=== PATIENT | female | born 1940 | race Caucasian/White ===

== ENCOUNTER 2018-07-30 16:21 | Inpatient (IN) ==
--- NOTE | 2018-07-30 20:02 | ED ---
HPI General Chief complaint: Nausea/Vomiting/Diarrhea Stated complaint: GI Time Seen by Provider: 07/30/18 19:59 Source: patient History of Present Illness HPI narrative: The patient is a 78 year old female who presents to the [facility] emergency department with a history of CHF, hypertension, aortic stenosis , and rheumatoid arthritis c/o 3 days of nausea and vomiting. She first presented to a clinic in [place] 4 days previous due to sore throat and cough for several day duration, She was told it was a cold and recommended to take tylenol cold and flu. She began driving from [place] later that day when she had new onset nausea and vomiting. She was seen at a local clinic and given sublingual zofran with failure to tolerate PO liquids and referred to the ER. Unable to tolerate any food, liquids, or medications for the last 2 days. She does not experience motion sickness or car sickness. She denies fever, chills, night sweats, hematemesis, diarrhea or constipation. Endorses rapid heart beats. Related Data Home Medications Medication Instructions Recorded Confirmed amlodipine 5 mg PO DAILY 07/30/18 07/30/18 cetirizine [Zyrtec] 10 mg PO DAILY 07/30/18 07/30/18 folic acid 1 mg PO DAILY 07/30/18 07/30/18 furosemide [Lasix] 10 mg PO ONCE 07/30/18 07/30/18 hydralazine 50 mg PO TID 07/30/18 07/30/18 ipratropium bromide 2 spray INTRANASAL TID 07/30/18 07/30/18 methotrexate sodium 2.5 mg PO DAILY 07/30/18 07/30/18 prednisone 5 mg PO DAILY 07/30/18 07/30/18 sulfasalazine 0.5 g PO DAILY 07/30/18 07/30/18 Allergies Allergy/AdvReac Type Severity Reaction Status Date / Time No Known Allergies Allergy Verified 07/30/18 17:27 Review of Systems Constitutional Denies chills, Denies excessive sweating, Denies fever(s), Denies night sweats and Reports poor appetite Eyes Reports system reviewed and no additional complaints, except as docu ENT Reports system reviewed and no additional complaints, except as docu, Reports dry mouth, Denies nasal discharge, Denies post nasal drip and Reports sore throat Cardiovascular Denies chest pain, Denies chest pain at rest, Reports rapid heart rate, Reports pedal edema, Reports edema, Reports irregular heart rhythm and Reports leg edema Respiratory Reports cough, Reports excessive phlegm production and Denies pain with cough Gastrointestinal Denies hematochezia, Denies change in bowel habits, Denies coffee ground emesis , Denies constipation, Denies diarrhea, Reports nausea and Reports vomiting Genitourinary Reports system reviewed and no additional complaints, except as docu Musculoskeletal Reports system reviewed and no additional complaints, except as docu, Denies myalgias and Denies muscle cramps Neurologic Reports system reviewed and no additional complaints, except as docu Endocrine Reports system reviewed and no additional complaints, except as docu [facility] Medical History Medical History Irregular heart beat (Acute) Aortic stenosis (Acute) Congestive heart failure (Acute) Hypertension (Acute) Rheumatoid arteritis (Acute) Surgical History Surgical History H/O right knee surgery (Acute) Hx laparoscopic cholecystectomy (Acute) Social History Social History Second Hand Smoke Exposure: No Smoking Status: Never smoker How Often Do You Have a Drink Containing Alcohol: Monthly or less Recent Travel in [facility] within the Last 8 Weeks: No Recent Out of Country Travel within the Last 8 Weeks: No Exam Const General: cooperative and well developed Nutritional Appearance: well nourished Orientation: alert, awake and oriented x3 HENMT Head: normocephalic and atraumatic Nose: no nasal discharge and no epistaxis Face and sinus: sinuses nontender Mouth: moist mucous membranes Teeth and gingiva: poor dentition Throat: posterior oropharynx normal Eyes Sclera: normal sclerae Pupils: PERRL EOM: EOM intact bilaterally Neck Neck: trachea midline, JVD and no JVD Thyroid: thyroid normal Carotids: bounding pulses Lymphatic: no lymphadenopathy noted Resp Effort & Inspection: no use of accessory muscles Auscultation: clear to auscultation bilaterally Cardio Rate: tachycardic Rhythm: abnormal rhythm irregularly irregular Heart Sounds: no gallops, murmur (Harper loudest at the right upper sternal border) systolic and no rubs Pulses: posterior tibial pulses present GI Inspection: non-distended Palpation: soft, no hepatosplenomegaly and nontender Auscultation: normal bowel sounds Back/Spine/Pelvis Back: no CVA tenderness Skin General: dry skin (warm) Neuro General: alert, awake and oriented x3 Cranial Nerves: other (Grossly nonfocal) Speech: speech normal Motor: no movement abnormalities noted Extrem General: normal to inspection, no clubbing, no cyanosis and no edema Psych Mood: congruent mood Affect: normal affect Judgment: judgment good Course Consultations Consultation #1: The patient's case including history, pertinent physical examination findings, and laboratory studies were discussed with Dr. Maldonado. It was agreed that the patient would be admitted to the hospitalist service. Initial Documented Vital Signs Temperature 98.8 F 07/30/18 17:16 Pulse Rate 85 07/30/18 17:16 Respiratory Rate 18 07/30/18 17:16 Blood Pressure 185/88 H 07/30/18 17:16 Pulse Oximetry 94 L 07/30/18 17:16 Last Documented Vital Signs Temperature 98.8 F 07/30/18 17:16 Pulse Rate 78 07/30/18 20:05 Respiratory Rate 18 07/30/18 20:05 Blood Pressure 191/84 H 07/30/18 20:05 Pulse Oximetry 98 07/30/18 20:05 Medical Decision Making MDM Narrative Medical decision making narrative: During the course of the patient's emergency department visit, the patient's history, examination, and differential diagnosis were reviewed with the patient. The patient was placed on a taxi driver supervisor with oximetry and frequent blood pressure monitoring. The patient had IV access obtained and blood work sent for analysis. Diagnostic evaluation was started regarding the patient's nausea and vomiting. The patient was initially provided Zofran IV 4mg, 500 mL NS. Cardizem was written to be administered as a bolus and the patient became tachycardic with A. fib with RVR in the 130s-140s. The patient required the bolus, however not the drip as the patient's heart rate was then maintained in the 70s-90s. The patient's diagnostic studies are remarkable for having a white count of 5.8 with a monocytosis at 11.9. Chemistries remarkable for potassium of 3.1 which was supplemented orally, magnesium was 1.7 which was also supplemented. CPK within normal limits, troponin I was elevated at 0.13 which could be related to demand from tachycardia. This will be trended while the patient is in the hospital. The patient's results were discussed with the patient, including the plan of care. I explained that further testing and/ or monitoring is indicated based on the patient's history, examination, and/ or laboratory findings. Therefore, I recommended admission for additional evaluation. The patient expressed understanding and was agreeable with this plan. The patient was admitted to the hospital in guarded condition and sent to a bed under the care of the [facility] service. Medical Screen Exam Complete: Yes Emergency Medical Condition: Yes Differential Diagnosis Differential Diagnosis: Dehydration, versus electrolyte derangements, versus new onset atrial fibrillation, versus acute coronary syndrome Medical Records Medical records reviewed: Yes I reviewed the patient's medical records. Lab Data Lab results reviewed: Yes I reviewed the patient's lab results. Result diagrams: 07/30/18 19:55 07/30/18 19:55 Lab Results 07/30/18 07/30/18 07/30/18 Range/Units 19:55 19:55 19:55 WBC 5.8 (4.0-11.0) th/mm3 RBC 3.92 L (4.00-5.30) mil/mm3 Hgb 12.0 (11.6-15.3) gm/dL Hct 36.3 (35.0-46.0) % MCV 92.6 (80.0-100.0) fL MCH 30.5 (27.0-34.0) pg MCHC 33.0 (32.0-36.0) % RDW 15.8 (11.6-17.2) % Plt Count 165 (150-450) th/mm3 MPV 9.5 (7.0-11.0) fL Neut % (Auto) 72.9 H (16.0-70.0) % Lymph % (Auto) 14.7 (9.0-44.0) % [place] % (Auto) 11.9 H (0.0-8.0) % Eos % (Auto) 0.2 (0.0-4.0) % Baso % (Auto) 0.3 (0.0-2.0) % Neut # (Auto) 4.3 (1.8-7.7) th/mm3 Lymph # (Auto) 0.9 L (1.0-4.8) th/mm3 [place] # (Auto) 0.7 (0.0-0.9) th/mm3 Eos # (Auto) 0.0 (0.0-0.4) th/mm3 Baso # (Auto) 0.0 (0.0-0.2) th/mm3 WBC Differential . Differential Comment Auto diff final Sodium 134 L (136-145) meq/L Potassium 3.1 L (3.5-5.1) meq/L Chloride 94 L (98-107) meq/L Carbon Dioxide 29.9 (21.0-32.0) meq/L Anion Gap 10 (5-15) meq/L BUN 10 (7-18) mg/dL Creatinine 0.70 (0.50-1.00) mg/dL Estimated GFR 81 L (>89) mL/min Random Glucose 91 (74-106) mg/dL Calcium 8.8 (8.5-10.1) mg/dL Magnesium (1.5-2.5) mg/dL Total Bilirubin 0.6 (0.2-1.0) mg/dL AST 33 (15-37) U/L ALT 19 (10-53) U/L Alkaline Phosphatase 51 (45-117) U/L Total Creatine Kinase 95 (26-192) U/L Troponin I 0.13 H (0.02-0.05) ng/mL Total Protein 7.0 (6.4-8.2) g/dL Albumin 3.8 (3.4-5.0) g/dL Lipase 64 L (73-393) U/L 07/30/18 Range/Units 19:55 WBC (4.0-11.0) th/mm3 RBC (4.00-5.30) mil/mm3 Hgb (11.6-15.3) gm/dL Hct (35.0-46.0) % MCV (80.0-100.0) fL MCH (27.0-34.0) pg MCHC (32.0-36.0) % RDW (11.6-17.2) % Plt Count (150-450) th/mm3 MPV (7.0-11.0) fL Neut % (Auto) (16.0-70.0) % Lymph % (Auto) (9.0-44.0) % [place] % (Auto) (0.0-8.0) % Eos % (Auto) (0.0-4.0) % Baso % (Auto) (0.0-2.0) % Neut # (Auto) (1.8-7.7) th/mm3 Lymph # (Auto) (1.0-4.8) th/mm3 [place] # (Auto) (0.0-0.9) th/mm3 Eos # (Auto) (0.0-0.4) th/mm3 Baso # (Auto) (0.0-0.2) th/mm3 WBC Differential Differential Comment Sodium (136-145) meq/L Potassium (3.5-5.1) meq/L Chloride (98-107) meq/L Carbon Dioxide (21.0-32.0) meq/L Anion Gap (5-15) meq/L BUN (7-18) mg/dL Creatinine (0.50-1.00) mg/dL Estimated GFR (>89) mL/min Random Glucose (74-106) mg/dL Calcium (8.5-10.1) mg/dL Magnesium 1.7 (1.5-2.5) mg/dL Total Bilirubin (0.2-1.0) mg/dL AST (15-37) U/L ALT (10-53) U/L Alkaline Phosphatase (45-117) U/L Total Creatine Kinase (26-192) U/L Troponin I (0.02-0.05) ng/mL Total Protein (6.4-8.2) g/dL Albumin (3.4-5.0) g/dL Lipase (73-393) U/L ECG Data Attestation: I personally reviewed and interpreted this ECG as follows: Interpretation: The patient had an EKG done on arrival. The patient's EKG revealed atrial fibrillation initial heart rate was in the 90s, it was documented again later to be up to 139, QRS duration was prolonged at 157, QTC 451 ms. The patient is noted to have marked axis deviation, right bundle branch block. The patient has downsloping ST segments in leads V1, V2, V3, V4, V5 with T-wave inversions in those leads. Discharge Plan Discharge Disposition Patient Disposition: 30 Still Patient Discharge Details Diagnosis: Nausea & vomiting, Atrial fibrillation with RVR, Acute hypokalemia Physicians Team ED Provider: Nancie Monge Primary Care Provider: NON STAFF,PROVIDER Rxs /Orders / Referrals /Forms Prescriptions: No Action sulfasalazine 500 mg Tablet 0.5 g PO DAILY RF: 0 cetirizine [Zyrtec] 10 mg Tablet 10 mg PO DAILY RF: 0 prednisone 5 mg Tablet 5 mg PO DAILY RF: 0 amlodipine 5 mg Tablet 5 mg PO DAILY RF: 0 methotrexate sodium 2.5 mg Tablet 2.5 mg PO DAILY RF: 0 folic acid 1 mg Tablet 1 mg PO DAILY RF: 0 hydralazine 50 mg Tablet 50 mg PO TID RF: 0 furosemide [Lasix] 20 mg Tablet 10 mg PO ONCE RF: 0 ipratropium bromide 42 mcg (0.06 %) [place],Non-Aerosol 2 spray INTRANASAL TID RF: 0 Status ED Status: With Doctor
[2018-07-30] MEDS ORDERED: Sodium Chlor 0.9% Inj 500 ML IV.SIG ONE (20:28)
[2018-07-30] MEDS ORDERED: dilTIAZem Inj 125 MG in Sodium Chlor 0.9% Inj 100 ML IV.CONT PRN (21:00)
[2018-07-30 21:27] LABS: Baso % (Auto) 0.3 % (0.0-2.0); Eos % (Auto) 0.2 % (0.0-4.0); Hematocrit 36.3 % (35.0-46.0); Lymph # (Auto) 0.9 th/mm3 (1.0-4.8); Lymph % (Auto) 14.7 % (9.0-44.0); Mean Corpuscular Hemoglobin 30.5 pg (27.0-34.0); Mean Corpuscular Volume 92.6 fL (80.0-100.0); Mean Platelet Volume 9.5 fL (7.0-11.0); Mono # (Auto) 0.7 th/mm3 (0.0-0.9); Mono % (Auto) 11.9 % (0.0-8.0); Neut # (Auto) 4.3 th/mm3 (1.8-7.7); Neut % (Auto) 72.9 % (16.0-70.0); Platelet Count 165 th/mm3 (150-450); Red Blood Count 3.92 mil/mm3 (4.00-5.30); Red Cell Distribution Width 15.8 % (11.6-17.2); White Blood Count 5.8 th/mm3 (4.0-11.0)
[2018-07-30 21:45] LABS: Albumin 3.8 g/dL (3.4-5.0); Anion Gap 10 meq/L (5-15); Aspartate Aminotransferase 33 U/L (15-37); Blood Urea Nitrogen 10 mg/dL (7-18); Calcium 8.8 mg/dL (8.5-10.1); Carbon Dioxide 29.9 meq/L (21.0-32.0); Chloride 94 meq/L (98-107); Glomerular Filtration Rate 81 mL/min (>89); Glucose,Random 91 mg/dL (74-106); Lipase 64 U/L (73-393); Potassium 3.1 meq/L (3.5-5.1); Sodium 134 meq/L (136-145)
[2018-07-30 21:46] LABS: Alanine Aminotransferase 19 U/L (10-53)
[2018-07-30 21:48] LABS: Alkaline Phosphatase 51 U/L (45-117)
[2018-07-30 22:44] LABS: Troponin I 0.13 ng/mL (0.02-0.05)
[2018-07-30] MEDS ORDERED: Potassium Chloride 25 MEQ Effervescent Tablet PO ONE (22:49)
[2018-07-30] MEDS ORDERED: Mag Sulf 1 gm/100 ml Premix 100 ML IV.SIG ONE (22:49)
[2018-07-31] MEDS ORDERED: Acetaminophen 325 MG Tablet PO PRN (01:01)
[2018-07-31] MEDS: Enoxaparin Inj 80 MG/0.8 ML Syringe SQ SCH ×2 (01:50→21:01)
[2018-07-31] MEDS: Sod Chloride 0.9% Inj 1,000 ML IV.CONT SCH ×3 (01:50→23:31)
--- NOTE | 2018-07-31 01:58 | P.HP ---
History of Present Illness Service: [facility] Primary Care Physician: PROVIDER NON STAFF History of Present Illness: 78-year-old female with past medical history significant for rheumatoid arthritis and hypertension presents to the emergency department for evaluation of persistent nausea/vomiting and hypertension. The patient reports that on Monday morning she was not feeling well. She was seen in urgent care, diagnosed with a cold and is taking Tylenol Cold and flu every 6 hours. She reports that Monday night she was unable to keep any food or medications down secondary to intractable nausea/vomiting. This persisted throughout Monday when she was seen at urgent care and failed a trial of Zofran. She was also noted to have an elevated blood pressure at that time. She was sent to the emergency department for further evaluation. On arrival to the ED, the patient was found to be in A. fib with RVR which responded to IV diltiazem 1. The patient reports no history of A. fib and is not on systemic anticoagulation. She denies any chest pain or shortness of breath. No fever/chills. No lateralizing signs/symptoms. No associated diarrhea. Inpatient Certification: I certify that the inpatient services were ordered in accordance with Medicare regulations governing the order. This includes certification that hospital inpatient services are reasonable and necessary and in the case of services not specified as inpatient-only under 42 CFR 419.22(n), that they are appropriately provided as inpatient services in accordance to with the 2-midnight benchmark under 43 CFR 412.3(e) Estimated Total Length of Stay (Days): 2 Plans for Post Hospital Care: Home Review of Systems All other systems reviewed negative except as stated in HPI [facility] - History History Provided By: Patient - Medical History Medical History: Medical History (Last Updated 07/30/18 @ 23:46 by Nancie Monge MD) Irregular heart beat Aortic stenosis Congestive heart failure Hypertension Rheumatoid arteritis - Surgical History Surgical History: Surgical History (Last Updated 07/30/18 @ 20:35 by Nancie Monge MD) H/O right knee surgery Hx laparoscopic cholecystectomy - Family History Family History: Family History (Last Updated 07/31/18 @ 01:52 by Radha Maldonado MD) Other Coronary artery disease - Tobacco History Second Hand Smoke Exposure: No Tobacco Use In Past 30 Days: No Smoking Status: Never smoker - Alcohol History How Often Do You Have a Drink Containing Alcohol: Monthly or less - Travel History Recent Travel in the [place] Within the Last 8 Weeks: No Recent Travel Out of the Country Within the Last 8 Weeks: No - Immunization History Tetanus Immunization: Unsure Hx Influenza Vaccine This Season: No Medications and Allergies Active Medications: Active Medications Acetaminophen (Tylenol) 650 mg PO Q4H PRN PRN Reason: Temp > 100.4 Amlodipine Besylate (Norvasc) 5 mg PO DAILY DIANA Cetirizine HCl (Zyrtec) 10 mg PO DAILY DIANA Enoxaparin Sodium (Lovenox Inj) 70 mg SQ Q12HR DIANA Folic Acid (Folic Acid) 1 mg PO DAILY DIANA Hydralazine HCl (Apresoline) 50 mg PO TID DIANA Diltiazem HCl 125 mg/ Sodium (Chloride) 125 mls @ 5 mls/hr IV.CONT TITRATE PRN ; Protocol PRN Reason: Per Protocol Sodium Chloride (Ns Inj) 1,000 mls @ 100 mls/hr IV.CONT .Q10H DIANA Methotrexate (Rheumatrex) 2.5 mg PO DAILY DIANA Ondansetron HCl (Zofran Inj) 4 mg IV.PUSH Q6H PRN PRN Reason: NAUSEA OR VOMITING Prednisone (Deltasone) 5 mg PO DAILY DIANA Sulfasalazine (Azulfidine) 500 mg PO DAILY DIANA Allergies Allergy/AdvReac Type Severity Reaction Status Date / Time No Known Allergies Allergy Verified 07/30/18 17:27 Home Medications Medication Instructions Recorded Confirmed Type amlodipine 5 mg PO DAILY 07/30/18 07/30/18 History cetirizine [Zyrtec] 10 mg PO DAILY 07/30/18 07/30/18 History folic acid 1 mg PO DAILY 07/30/18 07/30/18 History furosemide [Lasix] 10 mg PO ONCE 07/30/18 07/30/18 History hydralazine 50 mg PO TID 07/30/18 07/30/18 History ipratropium bromide 2 spray INTRANASAL TID 07/30/18 07/30/18 History methotrexate sodium 2.5 mg PO DAILY 07/30/18 07/30/18 History prednisone 5 mg PO DAILY 07/30/18 07/30/18 History sulfasalazine 0.5 g PO DAILY 07/30/18 07/30/18 History Exam Vital signs: Vital Signs 07/30/18 17:16 07/30/18 20:05 Temperature 98.8 F Pulse Rate 85 78 Respiratory Rate 18 18 Blood Pressure 185/88 H 191/84 H Pulse Oximetry 94 L 98 Intake & Output 07/30/18 07/30/18 07/31/18 06:59 18:59 06:59 Intake Total 600 / 600 Balance 600 / 600 Weight 72.575 kg Intake: IV 600 / 600 Magnesium Sulfate 1 gm/D5W 100 100 / 100 ml Premix 100 ML @ 100 mls/hr IV.SIG ONCE ONE Rx#:[id number] NS Inj 500 ML @ Wide Open IV. 500 / 500 SIG BOLUS ONE Rx#:[id number] Narrative: Gen.: No acute distress Head: Normocephalic. Atraumatic. EENT: Pupils equal round and reactive to light. Nose without drainage. Airway intact. Throat without injection. Cardiovascular: Regular rate and irregularly irregular rhythm. 4/5 ISAK. Respiratory: Lungs clear to auscultation bilaterally. No wheezes or rhonchi. Abdomen: Soft, nontender, nondistended. No peritoneal signs. Musculoskeletal: No gross deformities. No edema. Skin: No obvious rashes or erythema. Neuro: Sensory and motor grossly intact. Cranial nerves II through XII grossly intact. Results - Labs CBC & Chem 7: 07/30/18 19:55 07/30/18 19:55 Labs: Laboratory Results - last 24 hr 07/30/18 07/30/18 07/30/18 19:55 19:55 19:55 WBC 5.8 RBC 3.92 L Hgb 12.0 Hct 36.3 MCV 92.6 MCH 30.5 MCHC 33.0 RDW 15.8 Plt Count 165 MPV 9.5 Neut % (Auto) 72.9 H Lymph % (Auto) 14.7 [place] % (Auto) 11.9 H Eos % (Auto) 0.2 Baso % (Auto) 0.3 Neut # (Auto) 4.3 Lymph # (Auto) 0.9 L [place] # (Auto) 0.7 Eos # (Auto) 0.0 Baso # (Auto) 0.0 WBC Differential . Differential Comment Auto diff final Sodium 134 L Potassium 3.1 L Chloride 94 L Carbon Dioxide 29.9 Anion Gap 10 BUN 10 Creatinine 0.70 Estimated GFR 81 L Random Glucose 91 Calcium 8.8 Magnesium Total Bilirubin 0.6 AST 33 ALT 19 Alkaline Phosphatase 51 Total Creatine Kinase 95 Troponin I 0.13 H Total Protein 7.0 Albumin 3.8 Lipase 64 L 07/30/18 19:55 WBC RBC Hgb Hct MCV MCH MCHC RDW Plt Count MPV Neut % (Auto) Lymph % (Auto) [place] % (Auto) Eos % (Auto) Baso % (Auto) Neut # (Auto) Lymph # (Auto) [place] # (Auto) Eos # (Auto) Baso # (Auto) WBC Differential Differential Comment Sodium Potassium Chloride Carbon Dioxide Anion Gap BUN Creatinine Estimated GFR Random Glucose Calcium Magnesium 1.7 Total Bilirubin AST ALT Alkaline Phosphatase Total Creatine Kinase Troponin I Total Protein Albumin Lipase Caprini VTE Risk Assessment Caprini VTE Risk Assessment: Moderate/High Risk (score >= 2) Caprini Risk Assessment Model: Point Value = 1 Point Value = 2 Point Value = 3 Point Value = 5 Age 41-60 Minor surgery BMI > 25 kg/m2 Swollen legs Varicose veins or History of unexplained or recurrent spontaneous Oral contraceptives or hormone replacement Sepsis (< 1 month) Serious lung disease, including pneumonia (< 1 month) Abnormal pulmonary function Acute myocardial infarction Congestive heart failure (< 1 month) History of inflammatory bowel disease Medical patient at bed rest Age 61-74 Arthroscopic surgery Major open surgery (> 45 min) Laparoscopic surgery (> 45 min) Malignancy Confined to bed (> 72 hours) Immobilizing plaster cast Central venous access Age >= 75 History of VTE Family history of VTE Factor V Leiden Prothrombin [id number] Lupus anticoagulant Anticardiolipin antibodies Elevated serum homocysteine Heparin-induced thrombocytopenia Other congenital or acquired thrombophilia Stroke (< 1 month) Elective arthroplasty Hip, pelvis, or leg fracture Acute spinal cord injury (< 1 month) Prophylaxis Regimen: Total Risk Factor Score Risk Level Prophylaxis Regimen 0-1 Low Early ambulation 2 Moderate Order ONE of the following: *Sequential Compression Device (SCD) *Heparin 5000 units SQ BID 3-4 Higher Order ONE of the following medications: *Heparin 5000 units SQ TID *Enoxaparin/Lovenox 40 mg SQ daily (WT < 150 kg, CrCl > 30 mL/min) *Enoxaparin/Lovenox 30 mg SQ daily (WT < 150 kg, CrCl > 10-29 mL/min) *Enoxaparin/Lovenox 30 mg SQ BID (WT < 150 kg, CrCl > 30 mL/min) AND/OR *Sequential Compression Device (SCD) 5 or more Highest Order ONE of the following medications: *Heparin 5000 units SQ TID (Preferred with Epidurals) *Enoxaparin/Lovenox 40 mg SQ daily (WT < 150 kg, CrCl > 30 mL/min) *Enoxaparin/Lovenox 30 mg SQ daily (WT < 150 kg, CrCl > 10-29 mL/min) *Enoxaparin/Lovenox 30 mg SQ BID (WT < 150 kg, CrCl > 30 mL/min) AND *Sequential Compression Device (SCD) Assessment and Plan - Plan Assessment/plan: 1. Atrial fibrillation with rapid ventricular response (new onset) Therapeutic Lovenox Rate controlled status post diltiazem 1 Monitor on telemetry Cardiology consulted, appreciate assistance Echo pending 2. Elevated troponin Initial troponin 0.13 Suspect secondary to A. fib with RVR and hypertension EKG without signs of ischemia, personally reviewed Serial troponins/EKGs 3. Hypertension Continue home amlodipine, hydralazine 4. Rheumatoid arthritis Continue home prednisone and methotrexate FEN Healthy diet Electrolytes: Monitor replete as needed Therapeutic Lovenox NS at 100 cc/hour
[2018-07-31 04:09] LABS: Troponin I 0.23 ng/mL (0.02-0.05)
[2018-07-31 08:29] LABS: Troponin I 0.22 ng/mL (0.02-0.05)
[2018-07-31] MEDS: Folic Acid 1 MG Tablet PO SCH (09:16)
[2018-07-31] MEDS: amLODIPine 5 MG Tablet PO SCH (09:16)
[2018-07-31] MEDS: predniSONE 5 MG Tablet PO SCH (09:16)
[2018-07-31] MEDS: hydrALAZINE 50 MG Tablet PO SCH ×3 (09:16→21:01)
--- NOTE | 2018-07-31 09:50 | P.CONCA ---
History of Present Illness Primary Care Provider: PROVIDER NON STAFF History of Present Illness: This is a very pleasant 78 year old female with a past medical history of HTN who presented to the ER with complaints of palpatations and shortness of breath. 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 She was found to be in afib with RVR and her rate responded with IV diltiazem bolus. According to the patient she reports having a recent URI and has been taking OTC cold medication. According to the patient she has had a thorough cardiac workup including a stress test that was normal. On presentation, her Troponin was found to be mildly elevated. No current CP/PND/orthopnea/LE. Review of Systems All other systems reviewed negative except as stated in HPI [facility] - History History Provided By: Patient - Medical History Medical History: Medical History (Last Updated 07/30/18 @ 23:46 by Nancie Monge MD) Irregular heart beat Aortic stenosis Congestive heart failure Hypertension Rheumatoid arteritis - Surgical History Surgical History: Surgical History (Last Updated 07/30/18 @ 20:35 by Nancie Monge MD) H/O right knee surgery Hx laparoscopic cholecystectomy - Family History Family History: Family History (Last Updated 07/31/18 @ 01:52 by Radha Maldonado MD) Other Coronary artery disease - Tobacco History Second Hand Smoke Exposure: No Tobacco Use In Past 30 Days: No Smoking Status: Never smoker - Alcohol History How Often Do You Have a Drink Containing Alcohol: Monthly or less - Travel History Recent Travel in the [place] Within the Last 8 Weeks: No Recent Travel Out of the Country Within the Last 8 Weeks: No - Immunization History Tetanus Immunization: Unsure Hx Influenza Vaccine This Season: No Medications and Allergies Active Medications: Active Medications Acetaminophen (Tylenol) 650 mg PO Q4H PRN PRN Reason: Temp > 100.4 Amlodipine Besylate (Norvasc) 5 mg PO DAILY [facility] Last Admin: 07/31/18 09:16 Dose: 5 mg Cetirizine HCl (Zyrtec) 10 mg PO DAILY [facility] Last Admin: 07/31/18 09:16 Dose: 10 mg Enoxaparin Sodium (Lovenox Inj) 70 mg SQ Q12HR [facility] Last Admin: 07/31/18 01:50 Dose: 70 mg Folic Acid (Folic Acid) 1 mg PO DAILY [facility] Last Admin: 07/31/18 09:16 Dose: 1 mg Hydralazine HCl (Apresoline) 50 mg PO TID [facility] Last Admin: 07/31/18 09:16 Dose: 50 mg Diltiazem HCl 125 mg/ Sodium (Chloride) 125 mls @ 5 mls/hr IV.CONT TITRATE PRN ; Protocol PRN Reason: Per Protocol Sodium Chloride (Ns Inj) 1,000 mls @ 100 mls/hr IV.CONT .Q10H [facility] Last Admin: 07/31/18 01:50 Dose: 100 mls/hr Methotrexate (Rheumatrex) 2.5 mg PO DAILY [facility] Ondansetron HCl (Zofran Inj) 4 mg IV.PUSH Q6H PRN PRN Reason: NAUSEA OR VOMITING Prednisone (Deltasone) 5 mg PO DAILY [facility] Last Admin: 07/31/18 09:16 Dose: 5 mg Sulfasalazine (Azulfidine) 500 mg PO DAILY [facility] Allergies Allergy/AdvReac Type Severity Reaction Status Date / Time No Known Allergies Allergy Verified 07/30/18 17:27 Home Medications Medication Instructions Recorded Confirmed Type amlodipine 5 mg PO DAILY 07/30/18 07/30/18 History cetirizine [Zyrtec] 10 mg PO DAILY 07/30/18 07/30/18 History folic acid 1 mg PO DAILY 07/30/18 07/30/18 History furosemide [Lasix] 10 mg PO ONCE 07/30/18 07/30/18 History hydralazine 50 mg PO TID 07/30/18 07/30/18 History ipratropium bromide 2 spray INTRANASAL TID 07/30/18 07/30/18 History methotrexate sodium 2.5 mg PO DAILY 07/30/18 07/30/18 History prednisone 5 mg PO DAILY 07/30/18 07/30/18 History sulfasalazine 0.5 g PO DAILY 07/30/18 07/30/18 History Exam Vital signs: Vital Signs 07/30/18 17:16 07/30/18 20:05 07/31/18 01:00 Temperature 98.8 F Pulse Rate 85 78 88 Respiratory Rate 18 18 17 Blood Pressure 185/88 H 191/84 H 154/75 H Pulse Oximetry 94 L 98 98 07/31/18 03:00 07/31/18 05:00 07/31/18 07:29 Temperature Pulse Rate 64 62 77 Respiratory Rate 15 18 18 Blood Pressure 171/79 H 171/113 H 155/78 H Pulse Oximetry 97 97 Intake & Output 07/30/18 07/31/18 07/31/18 18:59 06:59 18:59 Intake Total 600 / 600 Balance 600 / 600 Weight 72.575 kg Intake: IV 600 / 600 Magnesium Sulfate 1 gm/D5W 100 100 / 100 ml Premix 100 ML @ 100 mls/hr IV.SIG ONCE ONE Rx#:[id number] NS Inj 500 ML @ Wide Open IV. 500 / 500 SIG BOLUS ONE Rx#:[id number] - Constitutional no acute distress - Routine HEENT Exam Head: Present: normocephalic Eye: Present: EOMI, PERRL ENT: Present: mucous membranes moist - Routine Neck Exam Present: supple. Absent: JVD - Routine Chest/Breast/Axilla Exam Chest wall: Absent: tenderness - Routine Respiratory Exam Present: CTA bilaterally - Routine Cardiovascular Exam Present: RRR, S1, S2, murmur (3/6 over RUSB) - Routine Abdominal Exam Present: soft, normoactive bowel sounds - Routine Extremities Exam Absent: edema - Routine Skin Exam Present: intact - Routine Neurological Exam Present: alert, oriented X3 - Routine Psychiatric Exam Present: normal affect Results 08/01/18 03:40 08/01/18 03:40 Cardiac Enzymes 07/30/18 07/30/18 07/31/18 Range/Units 19:55 19:55 03:00 AST 33 (15-37) U/L Troponin I 0.13 H 0.23 H D (0.02-0.05) ng/mL 07/31/18 Range/Units 07:38 AST (15-37) U/L Troponin I 0.22 H (0.02-0.05) ng/mL CBC 07/30/18 Range/Units 19:55 WBC 5.8 (4.0-11.0) th/mm3 RBC 3.92 L (4.00-5.30) mil/mm3 Hgb 12.0 (11.6-15.3) gm/dL Hct 36.3 (35.0-46.0) % Plt Count 165 (150-450) th/mm3 Neut # (Auto) 4.3 (1.8-7.7) th/mm3 Lymph # (Auto) 0.9 L (1.0-4.8) th/mm3 [place] # (Auto) 0.7 (0.0-0.9) th/mm3 Eos # (Auto) 0.0 (0.0-0.4) th/mm3 Baso # (Auto) 0.0 (0.0-0.2) th/mm3 Comprehensive Metabolic Panel 07/30/18 Range/Units 19:55 Sodium 134 L (136-145) meq/L Potassium 3.1 L (3.5-5.1) meq/L Chloride 94 L (98-107) meq/L Carbon Dioxide 29.9 (21.0-32.0) meq/L BUN 10 (7-18) mg/dL Creatinine 0.70 (0.50-1.00) mg/dL Calcium 8.8 (8.5-10.1) mg/dL AST 33 (15-37) U/L ALT 19 (10-53) U/L Alkaline Phosphatase 51 (45-117) U/L Total Protein 7.0 (6.4-8.2) g/dL Albumin 3.8 (3.4-5.0) g/dL Intake and Output 07/30/18 07/31/18 07/31/18 22:59 06:59 14:59 Intake Total 500 / 500 100 / 100 Balance 500 / 500 100 / 100 Intake: IV 500 / 500 100 / 100 Magnesium Sulfate 1 gm/D5W 100 100 / 100 ml Premix 100 ML @ 100 mls/hr IV.SIG ONCE ONE Rx#:[id number] NS Inj 500 ML @ Wide Open IV. 500 / 500 SIG BOLUS ONE Rx#:[id number] Other: Weight 72.575 kg EKG interpretations - Dysrhythmias Supraventricular dysrhythmia: atrial fibrillation - Blocks, axis, hypertrophy, ST abn AV and intraventricular conduction: right bundle branch block (fixed/ intermittent, complete/incomplete) Assessment and Plan - Plan New onset atrial fibrillation ([id number] -4 for age, female, HTN) hx of Aortic Stenosis Type 2 NSTEMI- troponin downtrending HTN- continue amlodopine and hydralazine, will add metoprolol Plan: I would recommend starting the patient on Eliquis 5 mg po BID. I will also start her on Metoprolol (patient states she has been on Metoprolol but does not recall what does. I believe that the elevated troponin is related to HTN, afib c RVR, and valvular heart disease. The patient is anxious for discharge; however , I would like to evaluate her with a TTE and if any abnormalities would consider stress test at that time. She is currently on Lovenox and this can be stopped and Eliquis can be started prior to d/c.
[2018-07-31] MEDS: Metoprolol Tartrate 25 MG Tablet PO SCH ×2 (10:59→23:31)
[2018-07-31] MEDS: sulfaSALAzine 500 MG Tablet PO SCH (10:59)
--- NOTE | 2018-07-31 11:24 | XR ---
EXAM DATE: 07/31/2018 11:20 AM EDT AGE/SEX: 78 years / Female INDICATIONS: . vomiting for 3 days CLINICAL DATA: This is the patient's initial encounter. Patient reports that signs and symptoms have been present for 3 days and indicates a pain score of 0/10. MEDICAL/SURGICAL HISTORY: . hx of pneumonia, bronchitis, asthma, possible CHF None. COMPARISON: No prior exams available for comparison. FINDINGS: Heart is moderately enlarged. Engorged vessels are seen in both upper lobes. There is no evidence of pulmonary edema or consolidating infiltrate. Osseous structures are intact. Significant arthropathy is seen in the right shoulder. CONCLUSION: Cardiomegaly with upper lobe vascular engorgement. No evidence of pulmonary edema or acute consolidating airspace disease. Electronically signed by: Harrison Patel MD 07/31/2018 11:23 AM EDT
[2018-07-31 12:09] LABS: Bilirubin,Urine Negative (Negative); Clarity,Urine Clear (Clear); Color,Urine Yellow (Yellw/Straw); Glucose,Urine (UA) Negative (Negative); Leukocyte Esterase,Urine Negative (Negative); Nitrite,Urine Negative (Negative); Specific Gravity,Urine 1.009 (1.002-1.035); Squamous Epithelial Cell,Urine 1 /hpf (0-5)
--- NOTE | 2018-07-31 13:58 | ECG ---
Date Performed: 07/30/2018 Time Performed: 19:48:57 PTAGE: 78 years EKG: Sinus rhythm with marked first degree heart block RIGHT BUNDLE BRANCH BLOCK LEFT ANTERIOR FASCICULAR BLOCK POSSIB LE LEFT VENTRICULAR HYPERTROPHY ST DEPRESSION, CONSIDER SUBENDOCARDIAL INJURY ABNORMAL ECG Clinical c orrelation is recommended NO PREVIOUS TRACING DOCTOR: Joe Shah Interpretating Date/Time 07/31/2018 13:57:44
--- NOTE | 2018-07-31 14:09 | ECG ---
Date Performed: 07/31/2018 Time Performed: 03:32:27 PTAGE: 78 years EKG: Sinus rhythm with marked first degree heart block Occasional ventricular ectopy RIGHT BUNDLE BRANCH BLOCK POSSIBL E LEFT VENTRICULAR HYPERTROPHY PROBABLE ANTERIOR MYOCARDIAL INFARCTION MODERATE T-WAVE ABNORMALITY, C ONSIDER LATERAL ISCHEMIA MODERATE T-WAVE ABNORMALITY, CONSIDER INFERIOR ISCHEMIA ABNORMAL ECG Compare d to PREVIOUS TRACING ST-T wave changes persist, clinical correlation recommended PREVIOUS TR ACIN07/30/18 DOCTOR: Joe Shah Interpretating Date/Time 07/31/2018 14:07:55
--- NOTE | 2018-07-31 14:09 | ECG ---
Date Performed: 07/30/2018 Time Performed: 20:43:12 PTAGE: 78 years EKG: SINUS TACHYCARDIA MARKED LEFT AXIS DEVIATION RIGHT BUNDLE BRANCH BLOCK LEFT VENTRICULAR HYP ERTROPHY AND ST-T CHANGE ABNORMAL ECG Compared to PREVIOUS TRACING rate has increased significantly with worsening of ST T changes, possib le ischemia Clinical correlation is recommended PREVIOUS TRACIN07/30/2018 20.37 DOCTOR: Joe Shah Interpretating Date/Time 07/31/2018 14:06:03
--- NOTE | 2018-07-31 17:36 | ECHRPT ---
Indication: A FIB FLUTTER CONCLUSIONS Normal left ventricular size. Severe concentric left ventricular hypertrophy suspicious for possibl e infiltrative cardiomyopathy. The left ventricular systolic function is hyperdynamic with an estimated ejection fraction in the ra nge of 65- 70%. The left atrial size is mildly dilated. Mitral annular calcification is present. Trace mitral valve regurgitation. Mild aortic valve stenosis. Moderate aortic valve stenosis. Aortic valve mean gradient is 30 mmHg Trace aortic valve regurgitation. . There is trace tricuspid valve regurgitation. The estimated pulmonary arterial pressure is 46 mmHg. BP: / HR: Rhythm: MEASUREMENTS (Male / Female) Normal Values Technical Quality: 2D ECHO LV Diastolic Diameter PLAX 4.5 cm 4.2 - 5.9 / 3.9 - 5.3 cm LV Systolic Diameter PLAX 3.3 cm IVS Diastolic Thickness 1.7 cm 0.6 - 1.0 / 0.6 - 0.9 cm LVPW Diastolic Thickness 1.3 cm 0.6 - 1.0 / 0.6 - 0.9 cm LV Relative Wall Thickness 0.7 RV Internal Dim ED PLAX 2.5 cm LA Systolic Diameter LX 4.5 cm 3.0 - 4.0 / 2.7 - 3.8 cm DOPPLER AV Peak Velocity 356.8 cm/s AV Peak Gradient 50.9 mmHg AV Mean Gradient 29.4 mmHg AV Velocity Time Integral 74.7 cm LVOT Peak Velocity 153.2 cm/s LVOT Peak Gradient 9.4 mmHg LVOT Velocity Time Integral 31.0 cm Mitral E Point Velocity 101.0 cm/s Mitral A Point Velocity 103.0 cm/s Mitral E to A Ratio 1.0 TR Peak Velocity 301.0 cm/s TR Peak Gradient 36.2 mmHg Right Atrial Pressure 10.0 mmHg Pulmonary Artery Systolic Pressu 46.2 mmHg Right Ventricular Systolic Press 46.2 mmHg FINDINGS LEFT VENTRICLE Normal left ventricular size. Severe concentric left ventricular hypertrophy suspicious for infiltrative cardiomyopathy, ie amyloi dosis. The left ventricular systolic function is hyperdynamic with an estimated ejection fraction in the ra nge of 65- 70%. RIGHT VENTRICLE Normal right ventricular size and systolic function. LEFT ATRIUM The left atrial size is mildly dilated. RIGHT ATRIUM The right atrial size is normal. ATRIAL SEPTUM Normal atrial septal thickness without atrial level shunting by limited color doppler interrogation. AORTA The aortic root and proximal ascending aorta are normal in size on limited imaging. MITRAL VALVE Mitral annular calcification is present. Trace mitral valve regurgitation. AORTIC VALVE The aortic valve is not well visualized. Moderate aortic valve stenosis. Aortic valve mean gradient is 30 mmHg trace aortic valve regurgitation. thickening of the aortic valve leaflets. TRICUSPID VALVE There is trace tricuspid valve regurgitation. The estimated pulmonary arterial pressure is 46 mmHg. PULMONARY VALVE No pulmonary valve regurgitation or stenosis. VESSELS The inferior vena cava is normal in size. PERICARDIUM No pericardial effusion. Randy Humphrey (Electronically Signed) Final Date:31 July 2018 17:36
[2018-07-31] MEDS ORDERED: Potassium Chloride 10 MEQ ER Capsule PO ONE (19:43)
[2018-08-01 04:51] LABS: Baso % (Auto) 0.5 % (0.0-2.0); Eos # (Auto) 0.2 th/mm3 (0.0-0.4); Eos % (Auto) 3.3 % (0.0-4.0); Hemoglobin 12.3 gm/dL (11.6-15.3); Lymph % (Auto) 16.4 % (9.0-44.0); Mean Corpuscular HGB Conc 32.4 % (32.0-36.0); Mean Corpuscular Hemoglobin 30.8 pg (27.0-34.0); Mean Corpuscular Volume 94.9 fL (80.0-100.0); Mean Platelet Volume 9.3 fL (7.0-11.0); Mono # (Auto) 0.9 th/mm3 (0.0-0.9); Mono % (Auto) 14.1 % (0.0-8.0); Neut % (Auto) 65.7 % (16.0-70.0); Platelet Count 183 th/mm3 (150-450); Red Cell Distribution Width 16.1 % (11.6-17.2); White Blood Count 6.1 th/mm3 (4.0-11.0)
[2018-08-01 05:10] LABS: Calcium 8.7 mg/dL (8.5-10.1); Carbon Dioxide 32.2 meq/L (21.0-32.0); Potassium 3.6 meq/L (3.5-5.1)
[2018-08-01 08:08] VITALS: BP 161/73; PULSE 63; RESP 17; TEMP 98.9; O2SAT 95
[2018-08-01] MEDS: Folic Acid 1 MG Tablet PO SCH (08:22)
[2018-08-01] MEDS: amLODIPine 5 MG Tablet PO SCH (08:22)
[2018-08-01] MEDS: hydrALAZINE 50 MG Tablet PO SCH (08:23)
[2018-08-01] MEDS: sulfaSALAzine 500 MG Tablet PO SCH (08:23)
[2018-08-01] MEDS: predniSONE 5 MG Tablet PO SCH (08:23)
--- NOTE | 2018-08-01 08:33 | P.PN ---
Subjective Interval history: Follow-up for shortness of breath, palpitation. Patient is currently doing well. Eating breakfast. No fever or chills. No chest pain. Cardiology cleared for discharge. Physical Exam Vital signs: Vital Signs 07/31/18 09:59 07/31/18 11:22 07/31/18 11:53 Temperature 98.4 F Pulse Rate 100 H 98 H 68 Respiratory Rate 18 18 18 Blood Pressure 143/69 H 145/65 H 154/69 H Pulse Oximetry 95 95 94 L 07/31/18 12:00 07/31/18 16:00 07/31/18 20:00 Temperature 98.7 F 98 F 98.8 F Pulse Rate 94 H 70 73 Respiratory Rate 18 17 16 Blood Pressure 147/70 H 130/73 136/64 Pulse Oximetry 97 97 96 08/01/18 00:00 08/01/18 04:00 08/01/18 08:00 Temperature 98.6 F 99.1 F 98.9 F Pulse Rate 96 H 84 63 Respiratory Rate 16 16 17 Blood Pressure 160/73 H 157/72 H 161/73 H Pulse Oximetry 95 96 95 Intake & Output 07/31/18 08/01/18 08/01/18 18:59 06:59 18:59 Intake Total 480 / 480 Balance 480 / 480 Weight 72.575 kg 72 kg Intake: Oral 480 / 480 Other: # Voids 2 Weight On Admission 72.575 kg Narrative: GENERAL: Alert, oriented 3, NAD. SKIN: Warm and dry. HEAD: Normocephalic. EYES: No scleral icterus. No injection or drainage. NECK: Supple, trachea midline. No JVD or lymphadenopathy. CARDIOVASCULAR: Regular rate and rhythm without murmurs, gallops, or rubs. RESPIRATORY: Moderate air entry. Mildly coarse breath sound throughout the lung lao. no accessory muscle use. GASTROINTESTINAL: Abdomen soft, non-tender, nondistended. MUSCULOSKELETAL: No cyanosis, or edema. BACK: Nontender without obvious deformity. No CVA tenderness. Results - Labs CBC & Chem 7: 08/01/18 03:40 08/01/18 03:40 Laboratory Results - last 24 hr 07/31/18 07/31/18 08/01/18 07:38 09:22 03:40 WBC 6.1 RBC 4.00 Hgb 12.3 Hct 38.0 MCV 94.9 MCH 30.8 MCHC 32.4 RDW 16.1 Plt Count 183 MPV 9.3 Neut % (Auto) 65.7 Lymph % (Auto) 16.4 [place] % (Auto) 14.1 H Eos % (Auto) 3.3 Baso % (Auto) 0.5 Neut # (Auto) 4.0 Lymph # (Auto) 1.0 [place] # (Auto) 0.9 Eos # (Auto) 0.2 Baso # (Auto) 0.0 WBC Differential . Differential Comment Auto diff final Sodium Potassium Chloride Carbon Dioxide Anion Gap BUN Creatinine Estimated GFR Random Glucose Calcium Total Creatine Kinase 63 Troponin I 0.22 H Urine Color Yellow Urine Clarity Clear Urine pH 7.0 Ur Specific [place] 1.009 Urine Protein 100 H Urine Glucose (UA) Negative Urine Ketones Trace H Urine Occult Blood Negative Urine Nitrate Negative Urine Bilirubin Negative Urine Urobilinogen Less than 2 Ur Leukocyte Esterase Negative Urine RBC 2 Urine WBC 1 Ur Squamous Epith Cells 1 Micro UA Comment Culture not ind Ur Microscopic Review Not Reportable Urine Culture Comments Culture not ind 08/01/18 03:40 WBC RBC Hgb Hct MCV MCH MCHC RDW Plt Count MPV Neut % (Auto) Lymph % (Auto) [place] % (Auto) Eos % (Auto) Baso % (Auto) Neut # (Auto) Lymph # (Auto) [place] # (Auto) Eos # (Auto) Baso # (Auto) WBC Differential Differential Comment Sodium 141 Potassium 3.6 Chloride 101 Carbon Dioxide 32.2 H Anion Gap 8 BUN 15 Creatinine 0.76 Estimated GFR 74 L Random Glucose 110 H Calcium 8.7 Total Creatine Kinase Troponin I Urine Color Urine Clarity Urine pH Ur Specific [place] Urine Protein Urine Glucose (UA) Urine Ketones Urine Occult Blood Urine Nitrate Urine Bilirubin Urine Urobilinogen Ur Leukocyte Esterase Urine RBC Urine WBC Ur Squamous Epith Cells Micro UA Comment Ur Microscopic Review Urine Culture Comments - Imaging Impressions Chest X-Ray 07/31/18 00:00 CONCLUSION: Cardiomegaly with upper lobe vascular engorgement. No evidence of pulmonary edema or acute consolidating airspace disease. - Procedures Transthoracic echocardiogram Normal left ventricular size. Severe concentric left ventricular hypertrophy suspicious for possible infiltrative cardiomyopathy. The left ventricular systolic function is hyperdynamic with an estimated ejection fraction in the range of 65- 70%. The left atrial size is mildly dilated. Mitral annular calcification is present. Trace mitral valve regurgitation. Mild aortic valve stenosis. Moderate aortic valve stenosis. Aortic valve mean gradient is 30 mmHg Trace aortic valve regurgitation. . There is trace tricuspid valve regurgitation. The estimated pulmonary arterial pressure is 46 mmHg. Assessment and Plan - Assessment (1) Atrial fibrillation with RVR Code(s): I48.91 - Unspecified atrial fibrillation Status: Acute - Plan Ms. Teran is a pleasant 78-year-old female with a history of hypertension was admitted to the hospital due to palpitation and shortness of breath. Patient was found to have atrial fibrillation. Cardiology was consulted. 1. Atrial fibrillation with rapid ventricular response (new onset) Continue metoprolol 50 mg twice daily. Also continue apixaban 5 mg twice daily. Echo shows left ventricular hypertrophy with suspicion for infiltrative disease. However after discussing with attending director of institutional research, left ventricular hypertrophy is likely due to long-standing hypertension. I discussed with patient regarding follow-up with her director of institutional research in [place]. If her primary director of institutional research feels it is necessary, she can undergo MRI studies as well as biopsy to investigate further with regards to infiltrative disease process. 2. Elevated troponin No additional workup recommended by cardiology. 3. Hypertension Continue home amlodipine, hydralazine 4. Rheumatoid arthritis Continue home prednisone and methotrexate Full code. Apixaban. Discharge patient to home Condition on discharge: Improved Regular Diet as tolerated Ad Lillian activity Rx written: Azithromycin 5 day course Metoprolol 50 mg twice daily Apixaban 5 mg twice daily Follow-up with primary care physician and director of institutional research within 1-2 weeks.
[2018-08-01] MEDS ORDERED: Metoprolol Tartrate 50 MG Tablet PO SCH (09:00)
--- NOTE | 2018-08-01 09:15 | P.PNCA ---
Subjective Interval history: No CP/SOB Physical Exam Vital signs: Vital Signs 07/31/18 09:59 07/31/18 11:22 07/31/18 11:53 Temperature 98.4 F Pulse Rate 100 H 98 H 68 Respiratory Rate 18 18 18 Blood Pressure 143/69 H 145/65 H 154/69 H Pulse Oximetry 95 95 94 L 07/31/18 12:00 07/31/18 16:00 07/31/18 20:00 Temperature 98.7 F 98 F 98.8 F Pulse Rate 94 H 70 73 Respiratory Rate 18 17 16 Blood Pressure 147/70 H 130/73 136/64 Pulse Oximetry 97 97 96 08/01/18 00:00 08/01/18 04:00 08/01/18 08:00 Temperature 98.6 F 99.1 F 98.9 F Pulse Rate 96 H 84 63 Respiratory Rate 16 16 17 Blood Pressure 160/73 H 157/72 H 161/73 H Pulse Oximetry 95 96 95 Intake & Output 07/31/18 08/01/18 08/01/18 18:59 06:59 18:59 Intake Total 480 / 480 Balance 480 / 480 Weight 72.575 kg 72 kg Intake: Oral 480 / 480 Other: # Voids 2 Weight On Admission 72.575 kg - Constitutional no acute distress - Routine HEENT Exam Eye: Present: EOMI ENT: Present: mucous membranes moist - Routine Neck Exam Absent: JVD - Routine Respiratory Exam Present: CTA bilaterally - Routine Cardiovascular Exam Present: S1, S2, murmur (3/6 ISAK over RUSB), irregular rhythm - Routine Abdominal Exam Present: soft, normoactive bowel sounds. 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
== END 2018-08-01 09:21 | disposition home or self-care (01) ==
LOC: NEPE 16:21 → NEDA 23:44 → NEDH 07-31 07:32 → HCPC 07-31 11:56
PROVIDERS: ADMIT Hospitalist; ATTEND Hospitalist